=== PATIENT | male | born 1975 ===

== ENCOUNTER 2020-05-03 20:22 | Emergency (ER) | payer BC ==
--- NOTE | 2020-05-03 21:00 | EDM.PDOC ---
ED HPI GENERAL MEDICAL PROBLEM - General Chief Complaint: Cardiovascular Problem Stated Complaint: TACHYCARDIA, ABDOMINAL PAIN Time Seen by Provider: 05/03/20 20:40 Source of Information: Reports: Patient History Limitations: Reports: No Limitations - History of Present Illness INITIAL COMMENTS - FREE TEXT/NARRATIVE: Patient presents to the emergency department complaining of an episode of rapid heart rate. Also is complaining of some abdominal pain. He states that for a couple of days has had a mild left lower quadrant abdominal discomfort. No history of his pain or pressure. He has felt a little constipated lately but otherwise normal bowel movements. No bloody or tarry or black stools. No nausea or vomiting. This evening he was pressing on the area of the abdomen that was sore and suddenly developed a very rapid heart rate. States he did feel slightly lightheaded. It lasted about a minute and then resolved. No problems since that time. No chest pain or tightness. No difficulty breathing. No history of previous similar problems. He denies any other recent illnesses. No fever or chills. No dysuria, urgency or frequency. He does have a history of panic attacks but states they are very rare and does not recall the rapid heart rate with that. He is on a medication for the panic attacks. No other regular medications. No hypertension or diabetes. No hyperlipidemia. No family history of heart disease. He is a smoker. Abdominal Pain Score (Numeric/FACES): 5 - Related Data Allergies Allergy/AdvReac Type Severity Reaction Status Date / Time No Known Allergies Allergy Verified 05/03/20 20:29 Home Meds: Home Meds PARoxetine [Paxil] 20 mg PO DAILY 05/03/20 [History] Social & Family History - Tobacco Use Tobacco Use Status *Q: Current Every Day Tobacco User Years of Tobacco use: 25 Packs/Tins Daily: 1 ED ROS GENERAL - Review of Systems Review Of Systems: See Below Constitutional: Denies: Fever, Chills HEENT: Denies: Nose Pain, Rhinitis, Sinus Problem, Throat Pain Respiratory: Denies: Shortness of Breath, Cough Cardiovascular: Denies: Chest Pain, Dyspnea on Exertion, Palpitations Endocrine: Denies: Fatigue GI/Abdominal: Reports: Abdominal Pain, Constipation (Mild by 2 days.). Denies: Black Stool, Bloody Stool, Diarrhea, Vomiting : Denies: Discharge, Flank Pain, Frequency, Urgency Skin: Denies: Rash Neurological: Denies: Confusion, Dizziness, Headache, Numbness, Seizure, Tingling, Change in Speech Psychiatric: Reports: Anxiety. Denies: Depression ED EXAM, GENERAL - Physical Exam Exam: See Below Exam Limited By: No Limitations General Appearance: Alert, WD/WN, No Apparent Distress Eye Exam: Bilateral Eye: EOMI, PERRL Ears: Normal External Exam, Normal Canal, Hearing Grossly Normal, Normal TMs Nose: Normal Mucosa, No Blood Throat/Mouth: Normal Lips, Normal Teeth, Normal Gums, Normal Oropharynx Head: Atraumatic, Normocephalic Respiratory/Chest: No Respiratory Distress, Lungs Clear, Normal Breath Sounds Cardiovascular: Regular Rate, Rhythm, No Edema, No Gallop, No Murmur, No Rub GI/Abdominal: Normal Bowel Sounds, Soft, Non-Tender, No Organomegaly, No Disten tion, No Mass. No: Rebound Neurological: Alert, Oriented, CN II-XII Intact, Normal Cognition, Other (Normal cerebellar exam.) Skin Exam: Warm, Dry #1 Interpretation Rhythm: NSR [place]: Normal P-Wave: Present QRS: Normal ST-T: Normal QT: Normal Comparison: NA - No Prior EKG EKG Interpretation Comments: Normal EKG. Course - Vital Signs Text/Narrative:: I discussed findings and treatment options with the patient. Given his completely normal exam and normal EKG, did not feel further work-up at this time was warranted. His abdominal pain is likely related to constipation and probably some excess gas. Episode of tachycardia of unknown etiology. Possibly related to his anxiety. Last Recorded V/S: Last Vital Signs Temp 36.8 C 05/03/20 20:23 Pulse 77 05/03/20 20:23 Resp 20 05/03/20 20:23 BP 161/90 H 05/03/20 20:23 Pulse Ox 99 05/03/20 20:23 - Orders/Labs/Meds Orders: Active Orders 24 hr Category Date Time Status EKG Documentation Completion [RC] ASDIRECTED Care 05/03/20 20:50 Active EKG 12 Lead [EK] Stat Ther 05/03/20 20:50 Ordered Departure - Departure Time of Disposition: 21:01 Disposition: Home, Self-Care 01 Condition: Good Clinical Impression: Abdominal pain, Tachycardia Referrals: PCP,Unknown [Primary Care Provider] - Additional Instructions: Resume usual activities. MiraLAX 1 capful daily for the next week. Should take it with a large glass of water. Push fluids. Monitor for any recurrent symptoms. Follow-up with primary physician if symptoms persist. Sepsis Event Note (ED) - Evaluation Sepsis Screening Result: No Definite Risk - Focused Exam Vital Signs: Vital Signs Temp Pulse Resp BP Pulse Ox 05/03/20 20:23 36.8 C 77 20 161/90 H 99 - My Orders Last 24 Hours: My Active Orders 05/03/20 20:50 EKG Documentation Completion [RC] ASDIRECTED EKG 12 Lead [EK] Stat - Assessment/Plan Last 24 Hours: My Active Orders 05/03/20 20:50 EKG Documentation Completion [RC] ASDIRECTED EKG 12 Lead [EK] Stat Assessment:: Abdominal pain likely secondary to constipation History of tachycardia with normal exam now. Plan: Discussed findings and possible etiologies as well as treatment options. Resume usual activities. Recommended MiraLAX 1 capful daily for the next week. Should take it with a large glass of water. Push fluids. Monitor for any recurrent symptoms. Follow-up with primary physician if symptoms persist.
== END 2020-05-03 21:10 | disposition home or self-care (01) ==
LOC: LL.ED 20:22
DX: R00.0 Tachycardia, unspecified (principal); R10.32 Left lower quadrant pain; Z72.0 Tobacco use
CPT/HCPCS: 93005; 93010; 99283; 99284-25